=== PATIENT | female | born 1960 | race Two or more races ===

== ENCOUNTER 2021-01-08 19:11 | Inpatient (IN) | payer MEDICAID, OTHER ==
[~2021-01-08] VITALS: Ht 162.6 cm; Wt 108.9 kg
[2021-01-08 21:16] LABS: Basophils # (auto) 0 10 ^3/uL (0-0.2); Basophils % (auto) 0.1 % (0.0-2.0); Eosinophils # (auto) 0 10 ^3/uL (0-0.8); Hematocrit 31.9 % (36.0-46.0); Hemoglobin 10.6 g/dL (12.2-16.2); Lymphocytes # (auto) 1.4 10 ^3/uL (0.4-5.4); Lymphocytes % (auto) 6.5 % (10.0-50.0); Mean Corpuscular Hemoglobin 29.1 pg (28.0-32.0); Mean Corpuscular Hgb Conc. 33.2 g/dL (32.0-36.0); Mean Corpuscular Volume 87.7 fL (80.0-100.0); Monocytes # (auto) 1.2 10 ^3/uL (0-1.3); Monocytes % (auto) 5.3 % (0.0-12.0); Neutrophils # (auto) 19.5 10 ^3/uL (1.6-8.6); Neutrophils % (auto) 88.1 % (37.0-80.0); Nucleated Red Blood Cells % 0.1 %; Red Blood Cells 3.63 10^6/uL (4.0-5.20); White Blood Cell 22.2 10^3/uL (4.4-10.8)
[2021-01-08 21:31] LABS: Albumin 2.8 g/dL (3.4-5.0); Calcium 10.9 mg/dL (8.5-10.1); Magnesium 2.2 mg/dL (1.6-2.6); Potassium 3.9 mmol/L (3.5-5.1)
[2021-01-08 21:40] LABS: BUN/Creatinine Ratio 15.7; Bilirubin, Total 1.3 mg/dL (0.2-1.0); Total Protein 7.2 g/dL (6.4-8.2)
[2021-01-08] MEDS ORDERED: ASPirin 325 MG TAB PO ONE (22:00)
[2021-01-08 23:34] LABS: Urine Amorphous Crystal FEW /hpf (None Seen); Urine Bacteria FEW /hpf (None Seen); Urine Blood Negative /uL (Negative); Urine Specific Gravity 1.018 (1.001-1.035); Urine WBC 1 /hpf (0 - 5)
[2021-01-09 00:27] LABS: INR 1.06 (0.9-1.15)
[2021-01-09] MEDS ORDERED: NITROGLYCERIN 0.4 MG SL TAB SL PRN (02:30)
[2021-01-09] MEDS ORDERED: MORPHINE SULFATE INJECTION 2 MG/ML SYRG IV PRN (02:30)
[2021-01-09] MEDS: SODIUM CHLORIDE 0.9% 1,000 ML IV SCH ×3 (03:00→21:52)
[2021-01-09] MEDS: PIPERACILLIN-TAZOB 2.25GM 50 ML IV SCH ×3 (06:36→17:16)
[2021-01-09] MEDS: HEPARIN SODIUM (PORCINE) 5000 UNITS/ML 1ML VIAL SC SCH ×3 (06:38→21:53)
[2021-01-09] MEDS ORDERED: ACETAMINOPHEN 325 MG TAB PO PRN (06:45)
[2021-01-09 07:29] LABS: Basophils # (auto) 0 10 ^3/uL (0-0.2); Basophils % (auto) 0.1 % (0.0-2.0); Eosinophils # (auto) 0 10 ^3/uL (0-0.8); Hematocrit 31.5 % (36.0-46.0); Lymphocytes # (auto) 1.3 10 ^3/uL (0.4-5.4); Lymphocytes % (auto) 5.4 % (10.0-50.0); Mean Corpuscular Hemoglobin 30.2 pg (28.0-32.0); Mean Corpuscular Hgb Conc. 34.8 g/dL (32.0-36.0); Mean Corpuscular Volume 86.8 fL (80.0-100.0); Monocytes # (auto) 1.1 10 ^3/uL (0-1.3); Monocytes % (auto) 4.7 % (0.0-12.0); Neutrophils # (auto) 20.8 10 ^3/uL (1.6-8.6); Neutrophils % (auto) 89.8 % (37.0-80.0); Nucleated Red Blood Cells % 0.1 %; Red Blood Cells 3.63 10^6/uL (4.0-5.20); White Blood Cell 23.1 10^3/uL (4.4-10.8)
[2021-01-09] MEDS ORDERED: ACETAMINOPHEN 500 MG TAB PO ONE (07:30)
[2021-01-09 07:51] LABS: Calcium 11.3 mg/dL (8.5-10.1); Potassium 3.8 mmol/L (3.5-5.1)
[2021-01-09 07:53] LABS: Bilirubin, Total 1.4 mg/dL (0.2-1.0); Total Protein 6.7 g/dL (6.4-8.2)
[2021-01-09] MEDS: ASPirin-EC 81 mg tab PO SCH (09:40)
[2021-01-09 11:30] VITALS: BP 121/54
[2021-01-09 13:00] VITALS: BP 120/64
[2021-01-09 17:00] VITALS: BP 128/66
[2021-01-09] MEDS ORDERED: MULT1TAB95 PO (19:03)
[2021-01-09] MEDS ORDERED: ACET-1156 PO (19:03)
[2021-01-09] MEDS ORDERED: LISI40TA11 PO (19:03)
[2021-01-09] MEDS ORDERED: HYDR-4833 PO (19:03)
[2021-01-09] MEDS ORDERED: LEVO50TA7 PO (19:03)
[2021-01-09] MEDS ORDERED: GABA100C9 PO (19:03)
[2021-01-09] MEDS: ATORVASTATIN 20 MG TAB PO SCH (21:52)
[2021-01-09 22:00] VITALS: BP 156/91
[2021-01-10] MEDS: SODIUM CHLORIDE 0.9% 1,000 ML IV SCH ×3 (03:27→20:40)
[2021-01-10 05:00] VITALS: BP 158/75
[2021-01-10] MEDS: HEPARIN SODIUM (PORCINE) 5000 UNITS/ML 1ML VIAL SC SCH (05:54)
[2021-01-10] MEDS: PIPERACILLIN-TAZOB 2.25GM 50 ML IV SCH ×4 (05:54→18:18)
[2021-01-10 05:57] LABS: Basophils # (auto) 0 10 ^3/uL (0-0.2); Basophils % (auto) 0.2 % (0.0-2.0); Eosinophils # (auto) 0 10 ^3/uL (0-0.8); Eosinophils % (auto) 0.2 % (0.0-7.0); Hematocrit 29.6 % (36.0-46.0); Hemoglobin 10.1 g/dL (12.2-16.2); Lymphocytes # (auto) 1.4 10 ^3/uL (0.4-5.4); Lymphocytes % (auto) 8.8 % (10.0-50.0); Mean Corpuscular Hemoglobin 29.6 pg (28.0-32.0); Mean Corpuscular Hgb Conc. 34.2 g/dL (32.0-36.0); Mean Corpuscular Volume 86.5 fL (80.0-100.0); Monocytes # (auto) 0.9 10 ^3/uL (0-1.3); Monocytes % (auto) 5.3 % (0.0-12.0); Neutrophils # (auto) 13.7 10 ^3/uL (1.6-8.6); Neutrophils % (auto) 85.5 % (37.0-80.0); Nucleated Red Blood Cells % 0.1 %; Red Blood Cells 3.42 10^6/uL (4.0-5.20); White Blood Cell 16.1 10^3/uL (4.4-10.8)
[2021-01-10 06:09] LABS: BUN/Creatinine Ratio 25.7; Calcium 10.8 mg/dL (8.5-10.1)
[2021-01-10] MEDS: MORPHINE SULFATE 4 MG/ML SYR/VIAL IV PRN ×2 (06:14→13:19)
[2021-01-10 09:13] VITALS: BP 157/79
[2021-01-10] MEDS: ASPirin-EC 81 mg tab PO SCH (10:00)
[2021-01-10] MEDS ORDERED: LISINOPRIL 20 MG TAB PO ONE (10:30)
[2021-01-10 13:30] VITALS: BP 164/97
[2021-01-10 17:00] VITALS: BP 150/91
[2021-01-10] MEDS: ONDANSETRON HCL 4 MG/2 ML VIAL IV PRN (17:33)
[2021-01-10] MEDS: HYDROcodone-ACET 10/325MG TAB PO PRN (17:33)
[2021-01-10] MEDS: GABAPENTIN 400 MG CAP PO SCH (21:28)
[2021-01-10] MEDS: ATORVASTATIN 20 MG TAB PO SCH (21:28)
[2021-01-10 22:00] VITALS: BP 134/68
[2021-01-11] MEDS: HYDROcodone-ACET 10/325MG TAB PO PRN ×3 (02:54→22:17)
[2021-01-11] MEDS: SODIUM CHLORIDE 0.9% 1,000 ML IV SCH ×3 (04:16→21:10)
[2021-01-11 05:00] VITALS: BP 126/68
[2021-01-11 05:44] LABS: Basophils # (auto) 0 10 ^3/uL (0-0.2); Basophils % (auto) 0.5 % (0.0-2.0); Eosinophils # (auto) 0.1 10 ^3/uL (0-0.8); Eosinophils % (auto) 0.7 % (0.0-7.0); Hematocrit 30.1 % (36.0-46.0); Hemoglobin 10.5 g/dL (12.2-16.2); Lymphocytes # (auto) 1.7 10 ^3/uL (0.4-5.4); Lymphocytes % (auto) 20.2 % (10.0-50.0); Mean Corpuscular Hemoglobin 30.1 pg (28.0-32.0); Mean Corpuscular Hgb Conc. 34.9 g/dL (32.0-36.0); Mean Corpuscular Volume 86.3 fL (80.0-100.0); Monocytes # (auto) 0.6 10 ^3/uL (0-1.3); Monocytes % (auto) 7.6 % (0.0-12.0); Nucleated Red Blood Cells % 0.1 %; Red Blood Cells 3.49 10^6/uL (4.0-5.20); Red Cell Distribution Width 13.7 % (11.8-14.3); White Blood Cell 8.5 10^3/uL (4.4-10.8)
[2021-01-11 06:10] LABS: BUN/Creatinine Ratio 26.5; Calcium 10.8 mg/dL (8.5-10.1)
[2021-01-11] MEDS: GABAPENTIN 400 MG CAP PO SCH ×3 (06:21→22:13)
[2021-01-11] MEDS: LEVOTHYROXINE SODIUM 50 MCG TAB PO SCH (06:21)
[2021-01-11 09:00] VITALS: BP 115/71
[2021-01-11] MEDS: AMOXICILLIN/CLAVUL 875 MG TAB PO SCH ×2 (09:23→22:13)
[2021-01-11] MEDS: ASPirin-EC 81 mg tab PO SCH (09:23)
[2021-01-11] MEDS: LISINOPRIL 20 MG TAB PO SCH (09:24)
[2021-01-11 13:00] VITALS: BP 145/64
[2021-01-11] MEDS ORDERED: AMOX-277 PO (15:20)
[2021-01-11 16:25] LABS: Albumin 2.6 g/dL (3.4-5.0); Calcium 10.9 mg/dL (8.5-10.1)
[2021-01-11 16:30] LABS: Bilirubin, Total 0.5 mg/dL (0.2-1.0); Total Protein 7.1 g/dL (6.4-8.2)
[2021-01-11 17:00] VITALS: BP_SYST 108; BP_SYST 135; BP_DIAS 65; BP_DIAS 68
[2021-01-11 22:00] VITALS: BP 150/72
[2021-01-11] MEDS: ATORVASTATIN 20 MG TAB PO SCH (22:13)
[2021-01-12 05:00] VITALS: BP 154/74
[2021-01-12] MEDS: HYDROcodone-ACET 10/325MG TAB PO PRN ×2 (05:14→17:49)
[2021-01-12] MEDS: SODIUM CHLORIDE 0.9% 1,000 ML IV SCH ×3 (05:15→22:30)
[2021-01-12 05:40] LABS: Hematocrit 31.5 % (36.0-46.0); Mean Corpuscular Hemoglobin 30.5 pg (28.0-32.0); Red Blood Cells 3.62 10^6/uL (4.0-5.20); Red Cell Distribution Width 13.9 % (11.8-14.3); White Blood Cell 10.2 10^3/uL (4.4-10.8)
[2021-01-12] MEDS: GABAPENTIN 400 MG CAP PO SCH ×3 (05:45→22:24)
[2021-01-12 05:54] LABS: Basophils % (manual) 0 (0.0-2.0); Blast Cells 0; Promyelocytes % 0; Reactive Lymphocytes 0
[2021-01-12 06:04] LABS: Calcium 10.1 mg/dL (8.5-10.1)
[2021-01-12] MEDS: LEVOTHYROXINE SODIUM 50 MCG TAB PO SCH (06:17)
[2021-01-12 09:00] VITALS: BP 106/47
[2021-01-12 09:21] LABS: Band Neutrophils % (manual) 6; Eosinophils % (manual) 1 (0-7); Lymphocytes % (manual) 19 (10.0-50.0); Metamyelocytes % 1; Monocytes % (manual) 11 (0-12); Myelocytes % 1
[2021-01-12] MEDS: ASPirin-EC 81 mg tab PO SCH (11:40)
[2021-01-12] MEDS: AMOXICILLIN/CLAVUL 875 MG TAB PO SCH ×2 (11:40→22:29)
[2021-01-12] MEDS: LISINOPRIL 20 MG TAB PO SCH (11:41)
[2021-01-12] MEDS: MORPHINE SULFATE 4 MG/ML SYR/VIAL IV PRN ×2 (12:20→22:29)
[2021-01-12 13:00] VITALS: BP 176/77
[2021-01-12] MEDS ORDERED: ENOXAPARIN SOD 40 MG/0.4 ML SYRINGE SC ONE (16:45)
[2021-01-12 17:00] VITALS: BP 127/95
[2021-01-12 21:53] VITALS: BP 144/69
[2021-01-12] MEDS: ATORVASTATIN 20 MG TAB PO SCH (22:25)
[2021-01-13] MEDS: HYDROcodone-ACET 10/325MG TAB PO PRN ×2 (03:36→14:35)
[2021-01-13] MEDS: ONDANSETRON HCL 4 MG/2 ML VIAL IV PRN (03:53)
[2021-01-13 05:13] VITALS: BP 154/79
[2021-01-13] MEDS: GABAPENTIN 400 MG CAP PO SCH ×2 (05:50→14:34)
[2021-01-13] MEDS: SODIUM CHLORIDE 0.9% 1,000 ML IV SCH ×2 (06:19→14:50)
[2021-01-13] MEDS: LEVOTHYROXINE SODIUM 50 MCG TAB PO SCH (07:01)
[2021-01-13 09:00] VITALS: BP 150/76
[2021-01-13] MEDS ORDERED: ENOXAPARIN SOD 40 MG/0.4 ML SYRINGE SC SCH (10:00)
[2021-01-13] MEDS: ASPirin-EC 81 mg tab PO SCH (10:02)
[2021-01-13] MEDS: AMOXICILLIN/CLAVUL 875 MG TAB PO SCH (10:02)
[2021-01-13] MEDS: LISINOPRIL 20 MG TAB PO SCH (10:03)
[2021-01-13 13:00] VITALS: BP 161/85
[2021-01-13 17:00] VITALS: BP 159/77
[2021-01-13] MEDS: MORPHINE SULFATE 4 MG/ML SYR/VIAL IV PRN (18:30)
[2021-01-13 20:46] VITALS: BP 154/67
== END 2021-01-13 22:40 | disposition home health service (06) | DRG 190 ==
LOC: ER 19:12 → TELE 01-09 02:29 → TELE-CENTR 01-09 11:04
PROVIDERS: ADMIT Hospitalist; ATTEND Hospitalist
DX: I21.4 Non-ST elevation (NSTEMI) myocardial infarction (principal); N17.0 Acute kidney failure with tubular necrosis; J18.9 Pneumonia, unspecified organism; R65.10 Systemic inflammatory response syndrome (SIRS) of non-infectious origin without acute organ dysfunction; E87.1 Hypo-osmolality and hyponatremia; D63.1 Anemia in chronic kidney disease; I48.91 Unspecified atrial fibrillation; E11.22 Type 2 diabetes mellitus with diabetic chronic kidney disease; E03.9 Hypothyroidism, unspecified; E66.01 Morbid (severe) obesity due to excess calories; E78.5 Hyperlipidemia, unspecified; I12.9 Hypertensive chronic kidney disease with stage 1 through stage 4 chronic kidney disease, or unspecified chronic kidney disease; J98.11 Atelectasis; B34.9 Viral infection, unspecified; G89.29 Other chronic pain; N18.9 Chronic kidney disease, unspecified; K76.0 Fatty (change of) liver, not elsewhere classified; M19.90 Unspecified osteoarthritis, unspecified site; Z68.41 Body mass index [BMI] 40.0-44.9, adult; Z20.822 Contact with and (suspected) exposure to COVID-19; Z79.4 Long term (current) use of insulin; Z87.891 Personal history of nicotine dependence; Z90.710 Acquired absence of both cervix and uterus; M54.9 Dorsalgia, unspecified; R79.89 Other specified abnormal findings of blood chemistry; K80.20 Calculus of gallbladder without cholecystitis without obstruction
CPT/HCPCS: 36415; 71045; 74181; 76705; 76775; 78582; 80048; 80053; 81001; 82306; 82570; 83605; 83690; 83735; 83880; 83970; 84156; 84300; 84484; 85007; 85025; 85027; 85379; 85610; 87040; 87426; 87804; 93005; 93306; 93970; 97110; 97116; 97530; G0378; J2405; J2543

== ENCOUNTER 2021-12-15 17:34 | Emergency (ER) | payer MEDICAID ==
[~2021-12-15] VITALS: Ht 152.4 cm; Wt 105.0 kg
[~2021-12-15 17:34] MED LIST: ACET-1156 PO; AMOX-277 PO; GABA100C9 PO; HYDR-4833 PO; LEVO50TA7 PO; LISI40TA11 PO; MULT1TAB95 PO
[2021-12-15 19:29] LABS: Basophils # (auto) 0 10 ^3/uL (0-0.2); Basophils % (auto) 0.7 % (0.0-2.0); Eosinophils # (auto) 0.1 10 ^3/uL (0-0.8); Hematocrit 35.4 % (36.0-46.0); Hemoglobin 12.1 g/dL (12.2-16.2); Lymphocytes # (auto) 1.2 10 ^3/uL (0.4-5.4); Lymphocytes % (auto) 17.1 % (10.0-50.0); Mean Corpuscular Hemoglobin 29.3 pg (28.0-32.0); Mean Corpuscular Hgb Conc. 34.1 g/dL (32.0-36.0); Mean Corpuscular Volume 85.9 fL (80.0-100.0); Monocytes # (auto) 0.4 10 ^3/uL (0-1.3); Monocytes % (auto) 5.3 % (0.0-12.0); Neutrophils # (auto) 5.4 10 ^3/uL (1.6-8.6); Neutrophils % (auto) 75.9 % (37.0-80.0); Nucleated Red Blood Cells % 0.1 %; Red Blood Cells 4.12 10^6/uL (4.0-5.20); Red Cell Distribution Width 14.2 % (11.8-14.3); White Blood Cell 7.1 10^3/uL (4.4-10.8)
[2021-12-15 19:44] LABS: Urine Bacteria NONE SEEN /hpf (None Seen); Urine Blood Negative /uL (Negative); Urine Specific Gravity 1.017 (1.001-1.035); Urine WBC 1 /hpf (0 - 5)
[2021-12-15 19:54] LABS: BUN/Creatinine Ratio 21.1; Calcium 10.4 mg/dL (8.5-10.1); Potassium 4.4 mmol/L (3.5-5.1)
[2021-12-15 19:57] LABS: Bilirubin, Total 0.6 mg/dL (0.2-1.0); Total Protein 7.4 g/dL (6.4-8.2)
[2021-12-15] MEDS ORDERED: amLODIPine BESYLATE 5 MG TAB PO ONE (22:45)
[2021-12-16 05:00] VITALS: BP 184/112
[2021-12-16] MEDS ORDERED: PERCOT PO (05:15)
== END 2021-12-16 05:54 | disposition home or self-care (01) ==
LOC: ER 17:34
DX: K80.20 Calculus of gallbladder without cholecystitis without obstruction (principal); I10 Essential (primary) hypertension; I25.2 Old myocardial infarction; Z90.710 Acquired absence of both cervix and uterus; Z88.1 Allergy status to other antibiotic agents
CPT/HCPCS: 36415; 71045; 74176; 80053; 81001; 84484; 85025; 93005

== ENCOUNTER 2022-10-01 15:46 | Emergency (ER) | payer MEDICAID ==
[~2022-10-01] VITALS: Ht 152.4 cm; Wt 102.9 kg
[~2022-10-01 15:46] MED LIST changes: -ACET-1156 PO; +ACET-1881 PO; -AMOX-277 PO; +AMOX875T4 PO; +GABA-1308 PO; -GABA100C9 PO; -LISI40TA11 PO; +LISI40TA16 PO; +PERCOT PO
[2022-10-01 16:54] VITALS: BP 129/41; PULSE 92; RESP 20; TEMP 97.9; O2SAT 98
[2022-10-01 17:10] LABS: Basophils # (auto) 0 10 ^3/uL (0-0.2); Basophils % (auto) 0.5 % (0.0-2.0); Eosinophils # (auto) 0.1 10 ^3/uL (0-0.8); Eosinophils % (auto) 1.4 % (0.0-7.0); Hematocrit 36.9 % (36.0-46.0); Hemoglobin 12.5 g/dL (12.2-16.2); Lymphocytes % (auto) 15.1 % (10.0-50.0); Mean Corpuscular Hemoglobin 29.5 pg (28.0-32.0); Mean Corpuscular Hgb Conc. 33.8 g/dL (32.0-36.0); Mean Corpuscular Volume 87.1 fL (80.0-100.0); Monocytes # (auto) 0.4 10 ^3/uL (0-1.3); Monocytes % (auto) 6.1 % (0.0-12.0); Neutrophils # (auto) 5.1 10 ^3/uL (1.6-8.6); Neutrophils % (auto) 76.9 % (37.0-80.0); Nucleated Red Blood Cells % 0.1 %; Red Blood Cells 4.24 10^6/uL (4.0-5.20); Red Cell Distribution Width 14.6 % (11.8-14.3); White Blood Cell 6.6 10^3/uL (4.4-10.8)
[2022-10-01 17:26] LABS: Albumin 3.9 g/dL (3.4-5.0); Calcium 11.5 mg/dL (8.5-10.1); Potassium 4.8 mmol/L (3.5-5.1)
[2022-10-01 17:31] LABS: BUN/Creatinine Ratio 26.7 (10.0-20.0); Bilirubin, Total 0.3 mg/dL (0.2-1.0); Total Protein 7.1 g/dL (6.4-8.2)
[2022-10-01] MEDS ORDERED: KETOROLAC TROMETH 60MG/2ML VIAL IM ONE (17:45)
[2022-10-01 18:35] LABS: Urine Bacteria NONE SEEN /hpf (None Seen); Urine Blood Negative /uL (Negative); Urine Specific Gravity 1.031 (1.001-1.035); Urine WBC 26 /hpf (0 - 5)
== END 2022-10-01 18:17 | disposition home or self-care (01) ==
LOC: ER 15:46
DX: K80.20 Calculus of gallbladder without cholecystitis without obstruction (principal); I10 Essential (primary) hypertension; Z79.899 Other long term (current) drug therapy; Z98.890 Other specified postprocedural states
CPT/HCPCS: 36415; 76705; 80053; 81001; 83690; 84484; 85025; 96372; 99285; J1885